=== PATIENT | male | born 1990 | race Caucasian/White ===

== ENCOUNTER 2016-12-06 19:50 | Emergency (ER) | payer SELFPAY ==
[2016-12-06] MEDS ORDERED: CEFTRIAXONE 1 GM VIAL ONE (20:59)
[2016-12-06] MEDS ORDERED: LIDOCAINE 1% MDV 20 ML ONE (20:59)
[2016-12-06] MEDS ORDERED: TDaP 0.5 ML VIAL IM.VACC ONE (21:00)
== END 2016-12-06 21:53 | disposition home or self-care (01) ==
LOC: FASTR 19:50
DX: S61.511A Laceration without foreign body of right wrist, initial encounter (principal); L03.113 Cellulitis of right upper limb; W26.0XXA Contact with knife, initial encounter; F17.210 Nicotine dependence, cigarettes, uncomplicated
CPT/HCPCS: 36415; 80053; 85025; 85652; 90471; 96372